=== PATIENT | female | born 1985 | race American Indian/Alaskan Native ===

== ENCOUNTER 2018-02-25 11:05 | Emergency (ER) | payer MEDICAID, OTHER ==
[2018-02-25 11:06] VITALS: BMI 46.4
[2018-02-25 11:35] VITALS: TEMP 99; O2SAT 100
[2018-02-25 11:36] VITALS: RESP 18
[2018-02-25] MEDS ORDERED: Sodium Chloride 0.9% 1,000 ML IV STA (11:50)
--- NOTE | 2018-02-25 11:54 | ED PDOC ---
Arrival/HPI - General Chief Complaint: GI Problem Time Seen by Provider: 02/25/18 11:24 Historian: Patient - History of Present Illness Narrative History of Present Illness (Text): 02/25/18 11:50 33 year old female, an employee of [employer], with no significant past medical history, presents to the ED for evaluation of nausea, vomiting and diarrhea since 2 am this morning. Patient informs sinus congestion for past 2 weeks which resolved spontaneously with time. However, this morning, patient informs experiencing a gradual onset of abdominal pain followed by multiple episodes of vomiting and diarrhea. Patient informs sick contact with daughter and boyfriend at home, who are experiencing similar symptoms. Patient denies any other associated somatic complaints. Patient denies any fevers, chills, headache, dizziness, chest pain, shortness of breath, dyspnea on exertion, cough, hematemesis, hematochezia, back pain, neck pain, or any other complaints. Patient informs her LNMP was February 09, 2018. Patient admits to drinking a lcohol occasionally. Time/Duration: 4-6 hours Symptom Onset: Gradual Symptom Course: Unchanged Activities at Onset: Light Context: Home Past Medical History - Provider Review Nursing Documentation Reviewed: Yes - Infectious Disease Hx of Infectious Diseases: None - Tetanus Immunization Tetanus Immunization: Unknown - Past Medical History Past Medical History: No Previous - Psychiatric Hx Psychophysiologic Disorder: No Hx Substance Use: No - Surgical History Hx Section: Yes - Anesthesia Hx Anesthesia: No Hx Anesthesia Reactions: No Hx Malignant Hyperthermia: No - Suicidal Assessment Feels Threatened In Home Enviroment: No Family/Social History - Physician Review Nursing Documentation Reviewed: Yes Family/Social History: Unknown Family HX Smoking Status: Current Some Days Smoker Hx Alcohol Use: Yes Hx Substance Use: No Allergies/Home Meds Allergies/Adverse Reactions: Allergies latex Allergy (Verified 02/25/18 11:29) RASH Home Medications: Home Meds Medication Instructions Recorded Confirmed No Known Home Med 02/25/18 02/25/18 Review of Systems - Physician Review All systems were reviewed & negative as marked: Yes - Review of Systems Constitutional: absent: Fevers Respiratory: absent: SOB Cardiovascular: absent: Chest Pain, TOM Gastrointestinal: Abdominal Pain, Diarrhea, Nausea, Vomiting. absent: Hematochezia, Hematemesis Genitourinary Female: absent: Dysuria, Urine Output Changes Musculoskeletal: absent: Back Pain, Neck Pain Skin: absent: Rash Neurological: absent: Headache, Dizziness Psychiatric: absent: Anxiety Physical Exam Vital Signs Reviewed: Yes Vital Signs Temp Pulse Resp BP Pulse Ox 02/25/18 11:36 99.0 F 98 H 18 124/77 100 02/25/18 11:30 99.0 F 98 H 17 124/78 100 Temperature: Afebrile Blood Pressure: Normal Pulse: Regular Respiratory Rate: Normal Appearance: Positive for: Well-Appearing, Non-Toxic, Comfortable Pain Distress: None Mental Status: Positive for: Alert and Oriented X 3 - Systems Exam Head: Present: Atraumatic, Normocephalic Pupils: Present: PERRL Extroacular Muscles: Present: EOMI Conjunctiva: Present: Normal Neck: Present: Normal Range of Motion Respiratory/Chest: Present: Clear to Auscultation, Good Air Exchange. No: Respiratory Distress, Accessory Muscle Use Cardiovascular: Present: Regular Rate and Rhythm, Normal S1, S2. No: Murmurs Abdomen: No: Tenderness, Distention, Peritoneal Signs Upper Extremity: Present: Normal Inspection. No: Cyanosis, Edema Lower Extremity: Present: Normal Inspection. No: Edema Neurological: Present: GCS=15, CN II-XII Intact, Speech Normal Skin: Present: Warm, Dry, Normal Color. No: Rashes Psychiatric: Present: Alert, Oriented x 3, Normal Insight, Normal Concentration Medical Decision Making ED Course and Treatment: 02/25/18 11:50 Impression: 33 year old female presents to the ED for evaluation of vomiting and diarrhea. Plan: -- Labs -- IV Fluids -- Urinalysis -- Reassess and disposition Prior Visits: Notes and results from previous visits were reviewed. Progress Notes: 02/25/18 13:12 Labs reviewed and discussed results with patient. Patient informs improved symptoms and presents no new medical complains. Will reassess patient after IV fluids. 02/25/18 13:52 Patient states feeling better and would like to go home. Patient is very well appearing and non-toxic. Vital signs are stable. I discussed the results of the work-up, diagnosis and treatment. Written discharge instructions were provided to patient. Additional verbal instructions were given and discussed with patient. We discussed the importance of follow up with PCP/consultants. I also reiterated reasons to immediately return to the ER including: worsening in current symptoms and/or new, continued, or concerning symptoms. Pt understood and agreed. - Scribe Statement The provider has reviewed the documentation as recorded by the Scribe Rosalina Redding. All medical record entries made by the Scribe were at my direction and personally dictated by me. I have reviewed the chart and agree that the record accurately reflects my personal performance of the history, physical exam, medical decision making, and the department course for this patient. I have also personally directed, reviewed, and agree with the discharge instructions and di sposition. Disposition/Present on Arrival - Present on Arrival Any Indicators Present on Arrival: No History of DVT/PE: No History of Uncontrolled Diabetes: No Urinary Catheter: No History of Decub. Ulcer: No History Surgical Site Infection Following: None - Disposition Have Diagnosis and Disposition been Completed?: Yes Diagnosis: Vomiting and diarrhea Disposition: HOME/ ROUTINE Disposition Time: 13:50 Patient Plan: Discharge Patient Problems: Current Active Problems Problem Status Onset Vomiting and diarrhea Acute Condition: IMPROVED Discharge Instructions (ExitCare): Diarrhea in Adolescents and Adults, Nausea and Vomiting, Adult (DC) Referrals: Bernadette Eisenberg MD [Primary Care Provider] - Follow up with primary Forms: [facility] (Hebrew), WORK NOTE
[2018-02-25 12:14] LABS: URINE BILIRUBIN NEGATIVE (NEGATIVE); URINE BLOOD SMALL (NEGATIVE); URINE GLUCOSE (UA) NEGATIVE (NEGATIVE); URINE LEUKOCYTE ESTERASE NEGATIVE Leu/uL (NEGATIVE); URINE PROTEIN NEGATIVE mg/dL (<30 mg/dL); URINE UROBILINOGEN 0.2 E.U./dL (<1 E.U./dL)
[2018-02-25 12:15] LABS: EOS # 0.1 (0.0-0.7); EOS % 0.8 % (1.5-5.0); GRAN # 5.45 (1.4-6.5); HEMOGLOBIN 12.4 g/dL (12.0-16.0); LYMPH # 1.4 (1.2-3.4); LYMPH % 18.9 % (22.0-35.0); MEAN CELL VOLUME 80.8 fl (80.0-105.0); MEAN CORPUSCULAR HEMOGLOBIN 25.6 pg (25.0-35.0); MEAN CORPUSCULAR HGB CONC 31.6 g/dl (31.0-37.0); MEAN PLATELET VOLUME 8.9 fl (7.0-11.0); MONO # 0.3 (0.1-0.6); MONO % 4.3 % (1.0-6.0); RBC 4.85 10^6/uL (3.5-6.1); RED CELL DISTRIBUTION WIDTH 14.9 % (11.5-14.5); WHITE BLOOD COUNT 7.2 10^3/uL (4.5-11.0)
[2018-02-25 12:17] LABS: URINE APPEARANCE SL CLOUDY (CLEAR); URINE COLOR YELLOW (YELLOW)
[2018-02-25 12:23] LABS: ALB/GLOB RATIO 1.3 (1.1-1.8); ALBUMIN 4.4 g/dL (3.0-4.8); ALT/SGPT 17 U/L (7-56); AST/SGOT 16 U/L (14-36); BLOOD UREA NITROGEN 13 mg/dL (7-21); CALCIUM 8.9 mg/dL (8.4-10.5); GFR NON-AFRICAN AMERICAN > 60; LIPASE 109 U/L (23-300)
[2018-02-25 12:32] LABS: URINE RBC 0 - 2 /hpf (0-2); URINE WBC 0 - 2 /hpf (0-6)
[2018-02-25 12:33] LABS: URINE BACTERIA FEW /hpf
[2018-02-25 12:53] VITALS: BP 121/73; PULSE 86
== END 2018-02-25 14:33 | disposition home or self-care (01) ==
LOC: ED 11:05
DX: R11.2 Nausea with vomiting, unspecified (principal); R19.7 Diarrhea, unspecified
CPT/HCPCS: 80053; 81001; 83690; 83735; 85025; 96360; 99283; J7030

== ENCOUNTER 2018-07-29 15:34 | Emergency (ER) | payer SELFPAY ==
[2018-07-29 15:49] VITALS: TEMP 98.1; O2SAT 99; BMI 35.4
--- NOTE | 2018-07-29 15:52 | ED PDOC ---
Arrival/HPI - General Chief Complaint: Cough, Cold, Congestion Time Seen by Provider: 07/29/18 15:37 Historian: Patient - History of Present Illness Narrative History of Present Illness (Text): 07/29/18 15:48 Patient is a 33 year old female who presents to the ED complaining of left ear pain and left eye irritation that started yesterday. Patient reports that she initially had a sore throat, and later started feeling like there is fluid in her ear. She states that yesterday and today she woke up with dried discharge on her eyelids. Patient admits to occasionally smoking and drinking EtOH. She has seasonal allergies, and has NKDA. Patient denies fevers, chills, cough, shortness of breath, chest pain, dyspnea on exertion, abdominal pain, nausea, vomiting, diarrhea, back pain, neck pain, headache, dizziness, or any other complaint. Time/Duration: < week Symptom Onset: Sudden Symptom Course: Unchanged Context: Home Associated Symptoms (Text): 07/29/18 16:00 Mild URI symptoms with sore throat and left ear pain and decreased hearing. Yesterday morning woke up with her left eye crusted shut. No visual disturbance. No fever. No cough. Past Medical History - Provider Review Nursing Documentation Reviewed: Yes - Infectious Disease Hx of Infectious Diseases: None - Tetanus Immunization Tetanus Immunization: Unknown - Past Medical History Past Medical History: No Previous - Psychiatric Hx Psychophysiologic Disorder: No Hx Substance Use: No - Surgical History Hx Section: Yes - Anesthesia Hx Anesthesia: No Hx Anesthesia Reactions: No Hx Malignant Hyperthermia: No - Suicidal Assessment Feels Threatened In Home Enviroment: No Family/Social History - Physician Review Nursing Documentation Reviewed: Yes Family/Social History: No Known Family HX Smoking Status: Current Some Days Smoker Hx Alcohol Use: Yes Frequency of alcohol use: Socially Hx Substance Use: No Allergies/Home Meds Allergies/Adverse Reactions: Allergies latex Allergy (Verified 07/29/18 15:44) RASH Review of Systems - Physician Review All systems were reviewed & negative as marked: Yes - Review of Systems Constitutional: absent: Fevers Eyes: Eye Pain (left eye irritation). absent: Vision Changes, Photophobia ENT: Sore Throat, Other (left ear pain) Respiratory: absent: SOB, Cough Cardiovascular: absent: Chest Pain, Palpitations Gastrointestinal: absent: Abdominal Pain, Diarrhea, Nausea, Vomiting Musculoskeletal: absent: Back Pain, Neck Pain Neurological: absent: Headache, Dizziness Physical Exam Vital Signs Reviewed: Yes Vital Signs Temp Pulse Resp BP Pulse Ox 07/29/18 15:44 98.1 F 111 H 18 142/84 99 Temperature: Afebrile Blood Pressure: Hypertensive Pulse: Tachycardic Respiratory Rate: Normal Appearance: Positive for: Well-Appearing, Non-Toxic, Comfortable Mental Status: Positive for: Alert and Oriented X 3 - Systems Exam Head: Present: Atraumatic, Normocephalic Pupils: Present: PERRL Extroacular Muscles: Present: EOMI Conjunctiva: Present: Other (Left eye conjunctiva erythematous with clear watery discharge ) Ears: Present: Erythema (Left ear), Normal Canal, TM Bulging (Left TM) Mouth: Present: Moist Mucous Membranes Pharnyx: No: ERYTHEMA, EXUDATE, TONSILS ENLARGED Neck: Present: Normal Range of Motion Respiratory/Chest: Present: Clear to Auscultation, Good Air Exchange. No: Res piratory Distress Cardiovascular: Present: Regular Rate and Rhythm, Normal S1, S2. No: Murmurs Neurological: Present: GCS=15, Speech Normal Skin: Present: Warm, Dry, Normal Color Psychiatric: Present: Alert, Oriented x 3, Normal Insight, Normal Concentration Medical Decision Making ED Course and Treatment: 07/29/18 15:55 Impression: 33 year old female complaining of left ear pain and left eye pain and discharge since yesterday. Plan: -- Reassess and disposition Prior Visits: Notes and results from previous visits were reviewed. Progress Notes: 07/29/18 15:57 - Scribe Statement The provider has reviewed the documentation as recorded by the Clint Barr Provider Scribe Attestation: All medical record entries made by the Scribe were at my direction and personally dictated by me. I have reviewed the chart and agree that the record accurately reflects my personal performance of the history, physical exam, medical decision making, and the department course for this patient. I have also personally directed, reviewed, and agree with the discharge instructions and disposition. Disposition/Present on Arrival - Present on Arrival Any Indicators Present on Arrival: No History of DVT/PE: No History of Uncontrolled Diabetes: No Urinary Catheter: No History of Decub. Ulcer: No History Surgical Site Infection Following: None - Disposition Have Diagnosis and Disposition been Completed?: Yes Diagnosis: Otitis media, Conjunctivitis Disposition: HOME/ ROUTINE Disposition Time: 16:02 Patient Plan: Discharge Condition: GOOD Discharge Instructions (ExitCare): Conjunctivitis ([place]), Ear Infections (Otitis Media) Additional Instructions: Symptomatic treatment. Tylenol or Advil as directed on bottle as needed. Follow-up with PMD. Follow-up in ER as needed. Prescriptions: Amoxicillin [Amoxil 250 mg Cap] 250 mg PO TID #21 cap Gentamicin Sulfate [Garamycin 0.3% Opth] 0 drop LEFTEYE Q6 #1 bottle Forms: [facility] ([place]), WORK NOTE
[2018-07-29 16:19] VITALS: PULSE 98
[2018-07-29 16:23] VITALS: BP 128/71; RESP 18
== END 2018-07-29 16:21 | disposition home or self-care (01) ==
LOC: ED 15:34
DX: H10.9 Unspecified conjunctivitis (principal); H66.90 Otitis media, unspecified, unspecified ear